=== PATIENT | male | born 1925 | race Caucasian/White ===

== ENCOUNTER → 2016-09-15 | Outpatient (CLI) | payer MEDICARE ==
--- NOTE | 2016-09-15 14:37 | XR ---
EXAMINATION TYPE: XR KUB DATE OF EXAM: 09/15/2016 2:31 PM COMPARISON: NONE HISTORY: Hematuria TECHNIQUE: One view abdomen. FINDINGS: The osseous structures are intact. The bowel gas pattern is nonspecific. Few prominent bowel loops which are prominent in appearance. Extensive retained fecal debris througho ut the colon noted. Pelvis: There is a 5 mm calcification overlying the left sacrum. Arthropathy of the hip joints noted correlate for femoral acetabular impingement. Degenerative change of the spine and osteitis pubis con densans noted. No definite suspicious calcifications overlying the kidneys. IMPRESSION: 1. No suspicious calcifications overlying the renal outlines. There is a single 5 mm calcification in the left pelvis which is most likely vascular. 2. Nonspecific gas pattern with extensive retained fecal debris.
== END | disposition home or self-care (01) ==
LOC: RADXRMAIN 14:06
PROVIDERS: ATTEND Urology
DX: N28.89 Other specified disorders of kidney and ureter (principal); R31.0 Gross hematuria
CPT/HCPCS: 74000

== ENCOUNTER 2017-04-19 06:53 | Day surgery (SDC) | payer MEDICARE ==
[2017-04-18 09:39] VITALS: BMI 24.7
[~2017-04-19 06:53] MED LIST: LACTATED RINGERS 1,000 ML IV SCH
[2017-04-19 07:12] VITALS: TEMP 96.8
[2017-04-19] MEDS ORDERED: LACTATED RINGERS 1,000 ML IV ONE (07:18)
[2017-04-19] MEDS ORDERED: PROPOFOL 10 MG/ML 20 ML VIAL IV ONE (07:33)
--- NOTE | 2017-04-19 07:52 | P.GSHP ---
History of Present Illness H&P Date: 04/19/17 Chief Complaint: Change in bowel habits, constipation This 89-year-old male who presents today for colonoscopy. Patient has a previous history of colon cancer. He is no change in bowel habits with increasing constipation. 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 History of Any Multi-Drug Resistant Organisms: None Reported Past Surgical History: Appendectomy, Bowel Resection, Coronary Bypass/CABG, Heart Catheterization, Hernia Repair, Joint Replacement, Orthopedic Surgery Additional Past Surgical History / Comment(s): Heart Caths 2004 & 2007, quad. bypass 2004, rt lower lobectomy 1965, bowel resections for cancer in 1999 and again in 2013, earnest knee replacements, inguinal hernia repair., L knee arthroscopy, bilateral carpal tunnel release, Earnest cataracts . Past Anesthesia/Blood Transfusion Reactions: No Reported Reaction Additional Psychological History / Comment(s): . Smoking Status: Former smoker Past Alcohol Use History: Occasional Additional Past Alcohol Use History / Comment(s): Pt started smoking in 1933 and quit in 1965. . Past Drug Use History: None Reported - Past Family History Father Additional Family Medical History / Comment(s): Father had an enlarged heart. He at 81 yrs. Mother Family Medical History: CVA/TIA, Hypertension Additional Family Medical History / Comment(s): Mother at 66yrs. Medications and Allergies Home Medications Medication Instructions Recorded Confirmed Type Aspirin [Adult Low Dose Aspirin EC] 81 mg PO DAILY 07/15/15 04/18/17 History Clopidogrel Bisulfate [Plavix] 75 mg PO DAILY 07/15/15 04/18/17 History Losartan Potassium 100 mg PO QAM 07/15/15 04/18/17 History amLODIPine [Norvasc] 5 mg PO BID 07/15/15 04/18/17 History Atorvastatin [Lipitor] 20 mg PO HS 04/18/17 04/18/17 History Allergies Allergy/AdvReac Type Severity Reaction Status Date / Time No Known Allergies Allergy Verified 04/18/17 09:10 Surgical - Exam Vital Signs Temp Pulse Resp BP 96.8 F L 62 18 155/76 04/19/17 07:09 04/19/17 07:09 04/19/17 07:09 04/19/17 07:09 - General well developed, no distress - Eyes PERRL - ENT normal pinna - Respiratory normal expansion - Cardiovascular Rhythm: regular - Abdomen Abdomen: soft, non tender Assessment and Plan Plan: Change amounts, constipation. We'll perform colonoscopy.
--- NOTE | 2017-04-19 08:05 | P.OP ---
Date of Procedure: 04/19/17 Preoperative Diagnosis: History of colon cancer Constipation Postoperative Diagnosis: Mild diverticulosis No evidence of recurrent colon cancer Procedure(s) Performed: Colonoscopy Implants: Anesthesia: MAC Surgeon: Wagner Sagastume Pathology: none sent Condition: stable Indications for Procedure: Operative Findings: Description of Procedure: The patient's placed on the endoscopy table in the lateral position. He received IV sedation. Digital rectal exam was performed which revealed no abnormalities. The prostate was symmetric without nodules. The flexible colonoscope was then placed patient anus and passed throughout the entire colon. The ileocecal valve was visually is. The cecum, ascending and transverse colon appeared normal. In the descending colon was a few scattered diverticula. The scope was then brought back to the level of the colorectal anastomosis. There is known to any stricture or tumor recurrence. Scope was then brought back the rectum and this appeared normal. Scope was withdrawn for patient.
[2017-04-19 08:13] VITALS: PULSE 59
[2017-04-19 08:27] VITALS: BP 110/65; RESP 16
== END 2017-04-19 09:44 | disposition home or self-care (01) ==
LOC: ORWHC2ENDO 06:53
PROVIDERS: ATTEND Surgery
DX: K57.30 Diverticulosis of large intestine without perforation or abscess without bleeding (principal); K59.00 Constipation, unspecified; Z85.038 Personal history of other malignant neoplasm of large intestine; Z90.49 Acquired absence of other specified parts of digestive tract; I10 Essential (primary) hypertension; E78.5 Hyperlipidemia, unspecified; I69.351 Hemiplegia and hemiparesis following cerebral infarction affecting right dominant side; Z95.1 Presence of aortocoronary bypass graft; Z79.02 Long term (current) use of antithrombotics/antiplatelets; Z79.82 Long term (current) use of aspirin; Z79.899 Other long term (current) drug therapy
CPT/HCPCS: 45378; J2704